=== PATIENT | female | born 1945 | race Two or more races ===

== ENCOUNTER 2017-08-05 20:51 | Inpatient (IN) | payer BC, MEDICARE, OTHER ==
[~2017-08-05] VITALS: Ht 147.3 cm; Wt 71.5 kg
[2017-08-05] MEDS ORDERED: HEPARIN 5,000 UNITS/ML, 1ML ONE (21:05)
[2017-08-05 21:13] LABS: BASOPHILS # (AUTO) 0.05 x10^3/uL (0-0.1); BASOPHILS % (AUTO) 0 % (0-1); EOSINOPHILS % (AUTO) 1 % (1-7); LYMPHOCYTES # (AUTO) 3.91 x10^3/uL (1-3.4); LYMPHOCYTES % (AUTO) 29 % (22-44); MD NO; MEAN CORPUSCULAR HGB CONC 33.9 g/dL (32.4-35.8); MEAN CORPUSCULAR VOLUME 88.5 fL (80-100); MEAN PLATELET VOLUME 8.4 fL (7.4-10.4); MONOCYTES # (AUTO) 0.78 x10^3/uL (0.2-0.8); MONOCYTES % (AUTO) 6 % (2-9); NEUTROPHILS # (AUTO) 8.64 x10^3/uL (1.8-6.8); NEUTROPHILS % (AUTO) 64 % (42-75); PLATELET COUNT 305 x10^3/uL (130-400); RED BLOOD COUNT 4.35 x10^6/uL (3.82-5.3); RED CELL DISTRIBUTION WIDTH 13.8 % (9.6-15.2)
[2017-08-05] MEDS ORDERED: FENTANYL PF 100 MCG/2ML ONE (21:18)
[2017-08-05] MEDS ORDERED: TICAGRELOR 90 MG TABLET ONE (21:18)
[2017-08-05] MEDS ORDERED: MIDAZOLAM 1 MG/ML, 5ML ONE (21:18)
[2017-08-05] MEDS ORDERED: VERAPAMIL 2.5 MG/ML, 2ML ONE (21:18)
[2017-08-05] MEDS ORDERED: BIVALIRUDIN 250 MG ONE ×2 (21:19→22:32)
[2017-08-05] MEDS ORDERED: LIDOCAINE/PF 1%, 30ML ONE (21:19)
[2017-08-05] MEDS ORDERED: HEPARIN 1,000 UNITS/ML, 10ML ONE (21:19)
[2017-08-05 21:22] LABS: INTERNATIONAL NORMALIZED RATIO 0.92 (0.93-1.1); PROTHROMBIN TIME 9.6 Seconds (9.6-11.5)
[2017-08-05 21:26] LABS: ALANINE AMINOTRANSFERASE 48 U/L (12-78); ALBUMIN 3.7 g/dL (3.4-5.0); ANION GAP 9 mmol/L (5-15); CHLORIDE 110 mmol/L (98-107); CREATININE 1.22 mg/dL (0.55-1.02)
[2017-08-05 21:30] LABS: ALKALINE PHOSPHATASE 134 U/L (45-117); BILIRUBIN,TOTAL 0.3 mg/dL (0.2-1.0); TOTAL PROTEIN 7.8 g/dL (6.4-8.2)
[2017-08-05] MEDS ORDERED: SODIUM CHLORIDE 0.9% 1,000 ML IV SCH (21:43)
[2017-08-05] MEDS ORDERED: ADENOSINE 6 MG/2 ML ONE (21:55)
[2017-08-05] MEDS ORDERED: EPTIFIBATIDE 0 ML IV ONE (21:57)
[2017-08-05] MEDS ORDERED: EPTIFIBATIDE 20 MG/10 ML ONE (21:57)
[2017-08-05] MEDS ORDERED: DOCUSATE 100 MG CAPSULE PO PRN (22:00)
[2017-08-05] MEDS ORDERED: OXYcodone IR 5MG TABLET PO PRN (22:00)
[2017-08-05] MEDS ORDERED: ONDANSETRON 2MG/ML, 2ML IVPush PRN (22:00)
[2017-08-05] MEDS ORDERED: LABETALOL 5MG/ML, 20ML IVPush PRN (22:00)
[2017-08-05] MEDS ORDERED: POLYETHYLENE GLYCOL 17 GM PACKET PO PRN (22:00)
[2017-08-05] MEDS ORDERED: hydrALAzine 20 MG/ML, 1ML IVPush PRN (22:00)
[2017-08-05] MEDS ORDERED: morphine SULFATE 10 MG/ML, 1ML IVPush PRN (22:00)
[2017-08-05] MEDS ORDERED: ONDANSETRON ODT 4 MG PO PRN ×2 (22:00→23:45)
[2017-08-05] MEDS ORDERED: BISACODYL 10 MG SUPP PR PRN ×2 (22:00→23:45)
[2017-08-05] MEDS ORDERED: ACETAMINOPHEN 325 MG TABLET PO PRN (22:00)
[2017-08-05] MEDS ORDERED: PROMETHAZINE 25 MG/ML, 1ML IM PRN (22:00)
[2017-08-05 22:28] LABS: FREE T4 (FREE THYROXINE) 0.96 ng/dL (0.76-1.46); THYROID STIMULATING HORMONE 2.5 mIU/L (0.358-3.740)
[2017-08-05] MEDS ORDERED: ZOLPIDEM 5MG TABLET PO PRN (23:45)
[2017-08-05] MEDS ORDERED: BISACODYL 5 MG EC TABLET PO PRN (23:45)
[2017-08-05] MEDS ORDERED: ONDANSETRON 2MG/ML, 2ML IV PRN (23:45)
[2017-08-05 23:55] VITALS: BP 122/68
[2017-08-06 04:00] VITALS: BP 136/52
[2017-08-06 04:58] LABS: BASOPHILS # (AUTO) 0.02 x10^3/uL (0-0.1); BASOPHILS % (AUTO) 0 % (0-1); EOSINOPHILS % (AUTO) 0 % (1-7); LYMPHOCYTES # (AUTO) 1.26 x10^3/uL (1-3.4); LYMPHOCYTES % (AUTO) 10 % (22-44); MD NO; MEAN CORPUSCULAR HEMOGLOBIN 29.1 pg (27.0-34.8); MEAN CORPUSCULAR HGB CONC 33.5 g/dL (32.4-35.8); MEAN CORPUSCULAR VOLUME 87.1 fL (80-100); MEAN PLATELET VOLUME 8.8 fL (7.4-10.4); MONOCYTES # (AUTO) 0.74 x10^3/uL (0.2-0.8); MONOCYTES % (AUTO) 6 % (2-9); NEUTROPHILS # (AUTO) 10.47 x10^3/uL (1.8-6.8); NEUTROPHILS % (AUTO) 84 % (42-75); PLATELET COUNT 270 x10^3/uL (130-400); RED BLOOD COUNT 3.47 x10^6/uL (3.82-5.3); RED CELL DISTRIBUTION WIDTH 13.5 % (9.6-15.2)
[2017-08-06 05:11] LABS: ALBUMIN 3.1 g/dL (3.4-5.0); ANION GAP 8 mmol/L (5-15); CALCIUM 7.7 mg/dL (8.5-10.1); CHLORIDE 113 mmol/L (98-107)
[2017-08-06 05:16] LABS: ALANINE AMINOTRANSFERASE 49 U/L (12-78); ALKALINE PHOSPHATASE 104 U/L (45-117); BILIRUBIN,TOTAL 0.4 mg/dL (0.2-1.0); CHOL/HDL RATIO 5.6; CHOLESTEROL, TOTAL 192 mg/dL (140-239); CREATININE 0.95 mg/dL (0.55-1.02); HDL CHOL % 18 % (28-40); HDL CHOLESTEROL (DIRECT) 34 mg/dL (40-60); LDL CHOLESTEROL,CALCULATED 133 mg/dL (54-169); LDL/HDL RATIO 3.9 (0.5-3.0); TOTAL PROTEIN 6.6 g/dL (6.4-8.2); TRIGLYCERIDES 127 mg/dL (50-200); VLDL CHOLESTEROL 25 mg/dL (0-25)
[2017-08-06] MEDS ORDERED: METOPROLOL TARTRATE 25 MG TABLET PO SCH (06:00)
[2017-08-06] MEDS ORDERED: ASPIRIN 325 MG TABLET EC PO SCH (06:00)
[2017-08-06] MEDS ORDERED: ATORVASTATIN 40 MG TABLET PO SCH ×2 (09:00→21:00)
[2017-08-06] MEDS ORDERED: SODIUM CHLORIDE 0.9% 1,000 ML IV SCH (09:30)
[2017-08-06] MEDS ORDERED: hydrALAzine 20 MG/ML, 1ML IV PRN (09:30)
[2017-08-06] MEDS: ASPIRIN 81 MG TABLET CHEW PO SCH (15:00)
[2017-08-06] MEDS: TICAGRELOR 90 MG TABLET PO SCH ×2 (15:00→21:00)
[2017-08-06 18:17] LABS: MICROSCOPIC INDICATED
[2017-08-06 18:38] LABS: CULTURE INDICATED? NO
[2017-08-06] MEDS: ACETAMINOPHEN 325 MG TABLET PO PRN (21:30)
[2017-08-06] MEDS: ATORVASTATIN 40 MG TABLET PO SCH (21:30)
[2017-08-07 04:00] VITALS: BP 131/44
[2017-08-07 05:03] LABS: ALANINE AMINOTRANSFERASE 42 U/L (12-78); ALBUMIN 2.9 g/dL (3.4-5.0); ANION GAP 6 mmol/L (5-15); CALCIUM 8.3 mg/dL (8.5-10.1); CHLORIDE 112 mmol/L (98-107)
[2017-08-07 05:05] LABS: ALKALINE PHOSPHATASE 87 U/L (45-117); BASOPHILS # (AUTO) 0.07 x10^3/uL (0-0.1); BASOPHILS % (AUTO) 1 % (0-1); BILIRUBIN,TOTAL 0.7 mg/dL (0.2-1.0); EOSINOPHILS # (AUTO) 0.06 x10^3/uL (0-0.4); EOSINOPHILS % (AUTO) 1 % (1-7); LYMPHOCYTES # (AUTO) 1.82 x10^3/uL (1-3.4); LYMPHOCYTES % (AUTO) 17 % (22-44); MD NO; MEAN CORPUSCULAR VOLUME 88.3 fL (80-100); MEAN PLATELET VOLUME 8.7 fL (7.4-10.4); MONOCYTES % (AUTO) 9 % (2-9); NEUTROPHILS # (AUTO) 7.87 x10^3/uL (1.8-6.8); NEUTROPHILS % (AUTO) 73 % (42-75); PLATELET COUNT 213 x10^3/uL (130-400); RED BLOOD COUNT 2.95 x10^6/uL (3.82-5.3); RED CELL DISTRIBUTION WIDTH 13.6 % (9.6-15.2); TOTAL PROTEIN 6.3 g/dL (6.4-8.2)
[2017-08-07] MEDS: TICAGRELOR 90 MG TABLET PO SCH ×2 (05:58→20:10)
[2017-08-07] MEDS: ACETAMINOPHEN 325 MG TABLET PO PRN ×2 (05:58→21:05)
[2017-08-07 06:49] VITALS: BP 131/44
[2017-08-07] MEDS ORDERED: POTASSIUM CHLORIDE 20 MEQ TAB.ER.PRT PO ONE ×2 (07:30→08:30)
[2017-08-07] MEDS ORDERED: MAGNESIUM SULFATE PMX 2GM/50ML 50 ML IV ONE (08:30)
[2017-08-07 09:07] LABS: INTERNATIONAL NORMALIZED RATIO 0.97 (0.93-1.1); PROTHROMBIN TIME 10.1 Seconds (9.6-11.5)
[2017-08-07] MEDS: ASPIRIN 81 MG TABLET CHEW PO SCH (09:10)
[2017-08-07] MEDS ORDERED: SODIUM CHLORIDE 0.9% 1,000 ML IV SCH (09:30)
[2017-08-07] MEDS ORDERED: OMNIPAQUE 350 MG/ML, 100ML BOTTLE ONE (09:55)
[2017-08-07] MEDS ORDERED: PROTAMINE SULFATE 10 MG/ML, 5ML ONE (12:59)
[2017-08-07] MEDS ORDERED: BACITRACIN 50,000 UNIT ONE (12:59)
[2017-08-07] MEDS ORDERED: THROMBIN 20,000 UNIT VIAL TP ONE (12:59)
[2017-08-07] MEDS ORDERED: HEPARIN 1,000 UNITS/ML, 10ML ONE (12:59)
[2017-08-07] MEDS ORDERED: MIDAZOLAM 1 MG/ML, 2ML ONE (13:06)
[2017-08-07] MEDS ORDERED: FENTANYL PF 250 MCG/5ML ONE (13:06)
[2017-08-07] MEDS ORDERED: PROPOFOL 10 MG/ML, 20ML ONE (13:30)
[2017-08-07] MEDS ORDERED: CEFAZOLIN 1,000 MG ONE (13:30)
[2017-08-07] MEDS ORDERED: ROCURONIUM 10 MG/ML,10ML ONE (13:30)
[2017-08-07] MEDS ORDERED: PHENYLEPHRINE 10 MG/ML ONE (13:30)
[2017-08-07] MEDS ORDERED: SUCCINYLCHOLINE 20 MG/ML, 10ML ONE (13:30)
[2017-08-07] MEDS ORDERED: SUGAMMADEX 200 MG/2 ML IVPush ONE (14:30)
[2017-08-07] MEDS ORDERED: hydrALAzine 20 MG/ML, 1ML IV PRN (15:30)
[2017-08-07] MEDS ORDERED: LABETALOL 5MG/ML, 20ML IV PRN (15:30)
[2017-08-07] MEDS: SODIUM CHLORIDE 0.9% 1,000 ML IV SCH (16:04)
[2017-08-07] MEDS: LISINOPRIL 10 MG TABLET PO SCH ×2 (16:12→20:11)
[2017-08-07] MEDS: CEFAZOLIN PMX 2GM/50ML 50 ML IVPB SCH (16:15)
[2017-08-07] MEDS ORDERED: MORPHINE SULFATE 4 MG/ML, 1ML ONE (16:39)
[2017-08-07] MEDS: MORPHINE SULFATE 4 MG/ML, 1ML IVPush PRN ×2 (16:48→17:15)
[2017-08-07] MEDS ORDERED: hydrALAzine 20 MG/ML, 1ML ONE (17:39)
[2017-08-07] MEDS: hydrALAzine 20 MG/ML, 1ML IV PRN ×2 (17:42→19:20)
[2017-08-07] MEDS: CARVEDILOL 6.25 MG TABLET PO SCH (18:12)
[2017-08-07] MEDS: HYDROcodone/APAP 5/325 TABLET PO PRN (20:11)
[2017-08-07] MEDS: ATORVASTATIN 40 MG TABLET PO SCH (20:11)
[2017-08-08] MEDS: CEFAZOLIN PMX 2GM/50ML 50 ML IVPB SCH (03:02)
[2017-08-08] MEDS: ACETAMINOPHEN 325 MG TABLET PO PRN (03:11)
[2017-08-08 04:00] VITALS: BP 136/48
[2017-08-08 04:43] LABS: BASOPHILS # (AUTO) 0.03 x10^3/uL (0-0.1); BASOPHILS % (AUTO) 0 % (0-1); EOSINOPHILS # (AUTO) 0.04 x10^3/uL (0-0.4); EOSINOPHILS % (AUTO) 0 % (1-7); LYMPHOCYTES # (AUTO) 1.29 x10^3/uL (1-3.4); LYMPHOCYTES % (AUTO) 12 % (22-44); MD NO; MEAN CORPUSCULAR HGB CONC 34.2 g/dL (32.4-35.8); MEAN CORPUSCULAR VOLUME 87.7 fL (80-100); MEAN PLATELET VOLUME 8.7 fL (7.4-10.4); MONOCYTES # (AUTO) 0.78 x10^3/uL (0.2-0.8); MONOCYTES % (AUTO) 7 % (2-9); NEUTROPHILS # (AUTO) 8.68 x10^3/uL (1.8-6.8); NEUTROPHILS % (AUTO) 80 % (42-75); PLATELET COUNT 181 x10^3/uL (130-400); RED BLOOD COUNT 3.01 x10^6/uL (3.82-5.3); RED CELL DISTRIBUTION WIDTH 14.4 % (9.6-15.2)
[2017-08-08 04:54] LABS: ALANINE AMINOTRANSFERASE 38 U/L (12-78); ALBUMIN 2.5 g/dL (3.4-5.0); ANION GAP 8 mmol/L (5-15); CALCIUM 7.6 mg/dL (8.5-10.1); CHLORIDE 112 mmol/L (98-107); CREATININE 1.04 mg/dL (0.55-1.02)
[2017-08-08 04:56] LABS: ALKALINE PHOSPHATASE 83 U/L (45-117); BILIRUBIN,TOTAL 0.7 mg/dL (0.2-1.0); TOTAL PROTEIN 5.7 g/dL (6.4-8.2)
[2017-08-08] MEDS: MORPHINE SULFATE 4 MG/ML, 1ML IVPush PRN (05:24)
[2017-08-08] MEDS: CARVEDILOL 6.25 MG TABLET PO SCH ×2 (05:24→18:16)
[2017-08-08] MEDS: HYDROcodone/APAP 5/325 TABLET PO PRN ×2 (09:27→16:01)
[2017-08-08] MEDS: ASPIRIN 81 MG TABLET CHEW PO SCH (09:27)
[2017-08-08] MEDS: TICAGRELOR 90 MG TABLET PO SCH ×2 (09:28→20:31)
[2017-08-08] MEDS: LISINOPRIL 10 MG TABLET PO SCH ×2 (09:28→20:31)
[2017-08-08] MEDS: SODIUM CHLORIDE 0.9% 1,000 ML IV SCH (12:00)
[2017-08-08 12:45] VITALS: BP 111/62
[2017-08-08 20:20] VITALS: BP 188/82
[2017-08-08] MEDS: ATORVASTATIN 40 MG TABLET PO SCH (20:33)
[2017-08-08] MEDS: hydrALAzine 20 MG/ML, 1ML IV PRN (20:34)
[2017-08-08 21:40] VITALS: BP 149/78
[2017-08-09] VITALS (7 sets, daily range): BP systolic 109–205; BP diastolic 55–70
[2017-08-09] MEDS: HYDROcodone/APAP 5/325 TABLET PO PRN ×2 (01:48→16:22)
[2017-08-09] MEDS: hydrALAzine 20 MG/ML, 1ML IV PRN ×2 (03:42→15:29)
[2017-08-09] MEDS: ACETAMINOPHEN 325 MG TABLET PO PRN (04:23)
[2017-08-09] MEDS: CARVEDILOL 6.25 MG TABLET PO SCH ×2 (04:55→18:02)
[2017-08-09 05:25] LABS: BASOPHILS # (AUTO) 0.02 x10^3/uL (0-0.1); BASOPHILS % (AUTO) 0 % (0-1); EOSINOPHILS # (AUTO) 0.07 x10^3/uL (0-0.4); EOSINOPHILS % (AUTO) 1 % (1-7); LYMPHOCYTES # (AUTO) 1.08 x10^3/uL (1-3.4); LYMPHOCYTES % (AUTO) 8 % (22-44); MD NO; MEAN CORPUSCULAR HEMOGLOBIN 29.4 pg (27.0-34.8); MEAN CORPUSCULAR HGB CONC 33.7 g/dL (32.4-35.8); MEAN CORPUSCULAR VOLUME 87.2 fL (80-100); MEAN PLATELET VOLUME 9.4 fL (7.4-10.4); MONOCYTES # (AUTO) 0.77 x10^3/uL (0.2-0.8); MONOCYTES % (AUTO) 5 % (2-9); NEUTROPHILS # (AUTO) 12.27 x10^3/uL (1.8-6.8); NEUTROPHILS % (AUTO) 86 % (42-75); PLATELET COUNT 240 x10^3/uL (130-400); RED BLOOD COUNT 3.45 x10^6/uL (3.82-5.3); RED CELL DISTRIBUTION WIDTH 14.1 % (9.6-15.2)
[2017-08-09 05:33] LABS: ANION GAP 7 mmol/L (5-15); CALCIUM 8.5 mg/dL (8.5-10.1); CHLORIDE 106 mmol/L (98-107); CREATININE 0.83 mg/dL (0.55-1.02)
[2017-08-09] MEDS ORDERED: FUROSEMIDE 20 MG/2 ML ONE (05:48)
[2017-08-09] MEDS ORDERED: FUROSEMIDE 20 MG/2 ML IV ONE (06:00)
[2017-08-09] MEDS: ALBUTEROL SULFATE 2.5 MG/3 ML NPPB SCH ×3 (07:49→20:36)
[2017-08-09] MEDS: AMPICILLIN/SULBACTAM 3 GM in SODIUM CHLORIDE 0.9% 100 ML IV SCH ×3 (08:50→21:16)
[2017-08-09] MEDS: TICAGRELOR 90 MG TABLET PO SCH ×2 (08:51→21:17)
[2017-08-09] MEDS: ASPIRIN 81 MG TABLET CHEW PO SCH (08:51)
[2017-08-09] MEDS ORDERED: AMPICILLIN/SULBACTAM 3 GM IVPB SCH (09:00)
[2017-08-09] MEDS: LISINOPRIL 10 MG TABLET PO SCH ×2 (09:00→21:17)
[2017-08-09 10:47] LABS: MICROSCOPIC INDICATED
[2017-08-09 10:48] LABS: CULTURE INDICATED? YES
[2017-08-09] MEDS: ATORVASTATIN 40 MG TABLET PO SCH (21:16)
[2017-08-10] MEDS: HYDROcodone/APAP 5/325 TABLET PO PRN ×4 (00:40→22:18)
[2017-08-10] MEDS: AMPICILLIN/SULBACTAM 3 GM in SODIUM CHLORIDE 0.9% 100 ML IV SCH ×4 (03:48→22:01)
[2017-08-10] MEDS: CARVEDILOL 6.25 MG TABLET PO SCH ×2 (06:17→17:53)
[2017-08-10 07:04] VITALS: BP 122/60
[2017-08-10] MEDS: TICAGRELOR 90 MG TABLET PO SCH ×2 (09:27→22:01)
[2017-08-10] MEDS: LISINOPRIL 10 MG TABLET PO SCH ×2 (09:27→22:02)
[2017-08-10] MEDS: ASPIRIN 81 MG TABLET CHEW PO SCH (09:27)
[2017-08-10] MEDS: ALBUTEROL SULFATE 2.5 MG/3 ML NPPB SCH ×2 (10:11→21:00)
[2017-08-10 12:42] VITALS: BP 150/72
[2017-08-10 17:48] VITALS: BP 157/77
[2017-08-10 19:02] VITALS: BP 126/62
[2017-08-10 22:00] VITALS: BP 171/63
[2017-08-10] MEDS: ATORVASTATIN 40 MG TABLET PO SCH (22:01)
[2017-08-11 01:00] VITALS: BP 112/60
[2017-08-11] MEDS: AMPICILLIN/SULBACTAM 3 GM in SODIUM CHLORIDE 0.9% 100 ML IV SCH ×2 (03:40→09:41)
[2017-08-11] MEDS: ALBUTEROL SULFATE 2.5 MG/3 ML NPPB SCH ×2 (04:37→08:15)
[2017-08-11 06:24] VITALS: BP 175/63
[2017-08-11] MEDS: CARVEDILOL 6.25 MG TABLET PO SCH (06:29)
[2017-08-11] MEDS: hydrALAzine 20 MG/ML, 1ML IV PRN (06:35)
[2017-08-11 07:09] VITALS: BP 151/71
[2017-08-11] MEDS: HYDROcodone/APAP 5/325 TABLET PO PRN ×2 (07:51→09:39)
[2017-08-11] MEDS: ASPIRIN 81 MG TABLET CHEW PO SCH (07:51)
[2017-08-11] MEDS: LISINOPRIL 10 MG TABLET PO SCH (07:52)
[2017-08-11] MEDS: TICAGRELOR 90 MG TABLET PO SCH (07:52)
[2017-08-11 07:55] VITALS: BP 122/55
[2017-08-11] MEDS ORDERED: CARV6.2512 PO (08:49)
[2017-08-11] MEDS ORDERED: ASPI-515 PO (08:49)
[2017-08-11] MEDS ORDERED: ATOR40TA78 PO (08:49)
[2017-08-11] MEDS ORDERED: TICA90TA PO (08:49)
[2017-08-11] MEDS ORDERED: LISI-167 PO (08:49)
[2017-08-11 09:01] LABS: ANION GAP 8 mmol/L (5-15); CALCIUM 8.7 mg/dL (8.5-10.1); CHLORIDE 108 mmol/L (98-107); CREATININE 0.84 mg/dL (0.55-1.02)
[2017-08-11 09:02] LABS: BASOPHILS % (AUTO) 1 % (0-1); EOSINOPHILS # (AUTO) 0.16 x10^3/uL (0-0.4); EOSINOPHILS % (AUTO) 2 % (1-7); LYMPHOCYTES # (AUTO) 0.94 x10^3/uL (1-3.4); LYMPHOCYTES % (AUTO) 10 % (22-44); MD NO; MEAN CORPUSCULAR HEMOGLOBIN 29.5 pg (27.0-34.8); MEAN CORPUSCULAR HGB CONC 33.8 g/dL (32.4-35.8); MEAN CORPUSCULAR VOLUME 87.4 fL (80-100); MEAN PLATELET VOLUME 8.8 fL (7.4-10.4); MONOCYTES # (AUTO) 0.51 x10^3/uL (0.2-0.8); MONOCYTES % (AUTO) 6 % (2-9); NEUTROPHILS # (AUTO) 7.38 x10^3/uL (1.8-6.8); NEUTROPHILS % (AUTO) 81 % (42-75); PLATELET COUNT 294 x10^3/uL (130-400); RED BLOOD COUNT 3.31 x10^6/uL (3.82-5.3); RED CELL DISTRIBUTION WIDTH 13.8 % (9.6-15.2)
[2017-08-11 15:15] VITALS: BP 158/68
[2017-08-11] MEDS ORDERED: AMOX1TAB64 PO (15:55)
[2017-08-11] MEDS ORDERED: HYDR1TAB12 PO (15:55)
== END 2017-08-11 16:18 | disposition home or self-care (01) | DRG 246 ==
LOC: ED 21:18 → EDIP 21:42 → CCU 23:17 → 5SO 08-08 12:26 → DCLOUNGE 08-11 15:52
PROVIDERS: ADMIT Internal Medicine; ATTEND Internal Medicine
PROC: 4A023N7 Measurement of Cardiac Sampling and Pressure, Left Heart, Percutaneous Approach (ICD-10-PCS; principal; 2017-08-05)
PROC: 027135Z Dilation of Coronary Artery, Two Arteries with Two Drug-eluting Intraluminal Devices, Percutaneous Approach (ICD-10-PCS; 2017-08-05)
PROC: B2111ZZ Fluoroscopy of Multiple Coronary Arteries using Low Osmolar Contrast (ICD-10-PCS; 2017-08-05)
PROC: B41F1ZZ Fluoroscopy of Right Lower Extremity Arteries using Low Osmolar Contrast (ICD-10-PCS; 2017-08-05)
PROC: 04QK0ZZ Repair Right Femoral Artery, Open Approach (ICD-10-PCS; 2017-08-07)
PROC: 04CK0ZZ Extirpation of Matter from Right Femoral Artery, Open Approach (ICD-10-PCS; 2017-08-07)
PROC: 30233N1 Transfusion of Nonautologous Red Blood Cells into Peripheral Vein, Percutaneous Approach (ICD-10-PCS; 2017-08-07)
DX: I21.19 ST elevation (STEMI) myocardial infarction involving other coronary artery of inferior wall (principal); J18.9 Pneumonia, unspecified organism; N17.9 Acute kidney failure, unspecified; I95.9 Hypotension, unspecified; I72.8 Aneurysm of other specified arteries; D62 Acute posthemorrhagic anemia; I11.9 Hypertensive heart disease without heart failure; N39.0 Urinary tract infection, site not specified; R00.1 Bradycardia, unspecified; S30.1XXA Contusion of abdominal wall, initial encounter; X58.XXXA Exposure to other specified factors, initial encounter; I72.4 Aneurysm of artery of lower extremity; I25.10 Atherosclerotic heart disease of native coronary artery without angina pectoris; F41.9 Anxiety disorder, unspecified; M54.9 Dorsalgia, unspecified; R55 Syncope and collapse; E78.5 Hyperlipidemia, unspecified; Z82.49 Family history of ischemic heart disease and other diseases of the circulatory system; Z87.891 Personal history of nicotine dependence; Z91.14 Patient's other noncompliance with medication regimen; Z87.01 Personal history of pneumonia (recurrent); Z90.49 Acquired absence of other specified parts of digestive tract; Y93.89 Activity, other specified; Y92.89 Other specified places as the place of occurrence of the external cause; Y99.8 Other external cause status
CPT/HCPCS: 36415; 71045; 71046; 74177; 76857; 80047; 80048; 80053; 80061; 81001; 83036; 83735; 84100; 84439; 84443; 84484; 85014; 85018; 85025; 85610; 85730; 86850; 86900; 86923; 87040; 87077; 87081; 87086; 87186; 92920; 93005; 93306; 93458; 94640; 99156; 99157; 99285; C1760; C1769; C1894; J0153; J0295; J0583; J0690; J1644; J2250; J2405; J2704; J2720; J3010; J3490; J7613; Q9967; 92928; C1725; C1757; C1874; C1887; J0330; J0360; J1327; J1940; J2370; J3475; J7030; P9016